=== PATIENT | female | born 1965 | race Asian ===

== ENCOUNTER 2021-02-14 11:50 | Emergency (ER) | payer BC, SELFPAY ==
[2021-02-14 13:48] VITALS: BP 137/74; PULSE 104; RESP 18; TEMP 37.1; O2SAT 98; BMI 31.3
--- NOTE | 2021-02-14 13:59 | ED_ITS ---
HPI - General Adult General Chief complaint: General Medical Stated complaint: flu like symptoms Time Seen by Provider: 02/14/21 13:38 Source: patient Mode of arrival: ambulatory Limitations: no limitations History of Present Illness HPI narrative: 55 y/o female presenting with body aches, subjective fever and fatigue last night, now resolved. She also reports 3 days of headache and sinus pressure. She woke up today with a runny nose. She has history of seasonal allergies and has been using Flonase with some improvement. Nasal discharge is clear. She presents to the ER asking for COVID-19 testing. MD complaint: URI symptoms Onset (ago): day(s) Location: head, face and mouth Radiation: non-radiation Severity: mild Severity scale (1-10): 3 Quality: aching Pain Consistency: intermittent Relieving factors: medication Exacerbating factors: none Associated symptoms: fever/chills (fever 102 last night ) Treatments prior to arrival: NSAID Related Data Previous Rx's Medication Instructions Recorded amoxicillin 500 mg-potassium 1 tab PO Q12H #14 tab 02/14/21 clavulanate 125 mg tablet (Augmentin) cetirizine 10 mg tablet (Zyrtec) 10 mg PO DAILY #14 tab 02/14/21 Allergies Allergy/AdvReac Type Severity Reaction Status Date / Time No Known Allergies Allergy Verified 02/14/21 13:51 [No Known Allergies*] Review of Systems Review of Systems: Constitutional: + Fever, No Chills ENT/Mouth: + sore throat, + Rhinorrhea, No Swallowing Difficulty Eyes: No Eye Pain, No Swelling, No Redness, +increased watering/itchy eyes Cardiovascular: No Chest Pain, No SOB Respiratory: No Cough, No Sputum Gastrointestinal: No Nausea, No Vomiting, No Diarrhea, No abdominal Pain Genitourinary: No Dysuria, + Urinary Frequency (x6 mo), No Hematuria Musculoskeletal: No joint pain, + Myalgias Skin: No Skin Lesions, No rash Neuro: No Weakness, No Numbness, No Dizziness, = Headache Heme/Lymph: No Lymphadenopathy PMFSH Social History Social History Advance Directives: No Advance Directives Information Provided: No Patient : No Physical Exam Vital Signs: Vital Signs: Last Vital Signs Temp 98.7 F 02/14/21 13:48 Pulse 104 H 02/14/21 13:48 Resp 18 02/14/21 13:48 BP 137/74 02/14/21 13:48 Pulse Ox 98 02/14/21 13:48 Body Mass Index 31.3 Appearance: Alert. Oriented X3. No acute distress. Eyes: Pupils equal, round and reactive to light. ENT: Pharynx normal. Nasal turbinates erythematous bilaterally, clear nasal discharge. no sinus tenderness. Neck: Normal inspection. Neck supple. CVS: Normal heart rate and rhythm. Pulses normal. Respiratory: No respiratory distress. Breath sounds normal. Skin: Skin warm and dry. Normal skin color. Normal skin turgor. No rashes. Extremities: No lower extremity edema. Neuro: Oriented X 3. Nonfocal. Course Course Course Narrative: 55 y/o female presenting with URI vs allergy symptoms for the last 3 days, overall improving but she would like to be evaluated for COVID. She is vaccinated. She works in [employer] and does not know if she has had an exposure. She reports seasonal allergy symptoms, worse than her usual symptoms - only taking flonase. Will plan to add zyrtec. COVID test is negative here. She appears well. She is stable for d/c home. Medical Decision Making Lab Data Labs: Lab Results 02/14/21 Range/Units 13:53 COVID-19 ([facility]ALDO) Negative (Negative) COVID-19 Clin Com See Note Critical Care Time Critical Care Time Critical Care Time: No Discharge Plan Discharge Clinical Impression: Seasonal allergic rhinitis Qualifiers: Allergic rhinitis trigger: unspecified Qualified Code(s): J30.2 - Other seasonal allergic rhinitis Patient Disposition: Home, Self-Care Instructions: Allergic Rhinitis (ED), Postnasal Drip (DC) Additional Instructions: Your COVID test was negative today. Recommend continuing your Flonase as your symptoms are most likely due to seasonal allergies. Start taking the prescribed allergy medication, once per day for at least 2 weeks. If your symptoms don't improve in 2 days, you can start the prescribed antibiotic for possible sinus infection. It does not appear you have a sinus infection at this time. Recommend following up with your doctor this week. If you develop new or worsening symptoms call 911 or come back to the ER for further evaluation. Prescriptions: New cetirizine [Zyrtec] 10 mg tablet 10 mg PO DAILY Qty: 14 RF: 0 amoxicillin-pot clavulanate [Augmentin] 500-125 mg tablet 1 tab PO Q12H Qty: 14 RF: 0
[2021-02-14 14:52] LABS: COVID-19 Test Negative (Negative)
== END 2021-02-14 15:15 | disposition home or self-care (01) ==
PROVIDERS: Physician Assistant; Emergency Provider Emergency Medicine; PCP Family Medicine
DX: J30.2 Other seasonal allergic rhinitis (principal); Z20.822 Contact with and (suspected) exposure to COVID-19; R51.9 Headache, unspecified
CPT/HCPCS: 36415; 87635; 99283